=== PATIENT | male | born 1970 | race Caucasian/White ===

== ENCOUNTER 2018-07-23 17:04 | Emergency (ER) | payer SELFPAY ==
--- NOTE | 2018-07-23 18:42 | ED ---
Respiratory - HPI Summary HPI Summary: This pt is a 48 y/o male presenting to [facility] [place] c/o cough and SOB for the past couple of days. Pt reports he had flu like symptoms over the weekend, that have since resolved. Since a couple of days ago pt has had persistent nonproductive cough and SOB. Pt notes he had fever and wheezing last night. Additionally states he has been feeling chest heaviness with cough, nasal congestion and body aches. - History of Current Complaint Chief Complaint: EDFluSymptoms Stated Complaint: COUGH/FEVER Time Seen by Provider: 07/23/18 18:31 Hx Obtained From: Patient Onset/Duration: Lasting Days, Still Present Current Severity: Moderate Pain Intensity: 0 Character: Wheezing, Cough (Nonproductive) Sputum Amount: None Aggravating Factor(s): Nothing Alleviating Factor(s): Nothing Associated Signs and Symptoms: SOB, Chest Pain, Wheezing, Chest Pain with Cough , Nasal Congestion - Allergy/Home Medications Allergies/Adverse Reactions: Allergies Allergy/AdvReac Type Severity Reaction Status Date / Time No Known Allergies Allergy Verified 12/24/14 18:26 PMH/Surg Hx/FS Hx/Imm Hx Endocrine/Hematology History: Reports: Hx Diabetes Denies: Hx Thyroid Disease Cardiovascular History: Denies: Hx Congestive Heart Failure, Hx Hypertension Respiratory History: Denies: Hx Asthma, Hx Chronic Obstructive Pulmonary Disease (COPD) GI History: Denies: Hx Ulcer - Surgical History Surgery Procedure, Year, and Place: left ankle/foot surgery Infectious Disease History: No Infectious Disease History: Denies: Hx Hepatitis, Hx Human Immunodeficiency Virus (HIV), Traveled Outside the [place] in Last 30 Days - Family History Family History: CVA - Social History Alcohol Use: None Substance Use Type: Reports: None Smoking Status (MU): Former Smoker Review of Systems Positive: Fever ENT: Other - POS: nasal congestion Positive: Chest Pain Positive: Shortness Of Breath, Cough Positive: Myalgia All Other Systems Reviewed And Are Negative: Yes Physical Exam - Summary Physical Exam Summary: VITAL SIGNS: Reviewed. GENERAL: Patient is a well-developed and nourished male who is lying comfortable in the stretcher. Patient is not in any acute respiratory distress. HEAD AND FACE: No signs of trauma. No ecchymosis, hematomas or skull depressions. No sinus tenderness. EYES: PERRLA, EOMI x 2, No injected conjunctiva, no nystagmus. EARS: Hearing grossly intact. Ear canals and tympanic membranes are within normal limits. MOUTH: Oropharynx within normal limits. NECK: Supple, trachea is midline, no adenopathy, no JVD, no carotid bruit, no c- spine tenderness, neck with full ROM. CHEST: Symmetric, no tenderness at palpation LUNGS: Crackles, wheezing and decreased breath sounds. CVS: Regular rate and rhythm, S1 and S2 present, no murmurs or gallops appreciated. ABDOMEN: Soft, non-tender. No signs of distention. No rebound, no guarding, and no masses palpated. Bowel sounds are normal. EXTREMITIES: FROM in all major joints, no edema, no cyanosis or clubbing. NEURO: Alert and oriented x 3. No acute neurological deficits. Speech is normal and follows commands. SKIN: Dry and warm Triage Information Reviewed: Yes Vital Signs On Initial Exam: Initial Vitals Temp Pulse Resp BP Pulse Ox 96.8 F 104 20 161/94 97 07/23/18 17:09 07/23/18 17:09 07/23/18 17:09 07/23/18 17:09 07/23/18 17:09 Vital Signs Reviewed: Yes Diagnostics - Vital Signs Vital Signs Temp Pulse Resp BP Pulse Ox 07/23/18 17:09 96.8 F 104 20 161/94 97 - Laboratory Lab Statement: Any lab studies that have been ordered have been reviewed, and results considered in the medical decision making process. - Radiology Chest XR Radiology Interpretation Completed By: ED Physician Summary of Radiographic Findings: Negative chest XR. Pending official report. - EKG 18:57 Cardiac Rate: NL - at 99 bpm EKG Rhythm: Sinus Rhythm EKG Comparison: Other - No old EKG for comparison Summary of EKG Findings: No ST elevations. T wave inversion in leads III and aVF. Disposition - Course Assessment/Plan: Influenza A is positive. Chest x-ray is negative. In the ED course the patient was given a DuoNeb since the patient had some wheezing. The after these medications were given the symptoms have improved. The patient was discharged home with a prescription for Tamiflu. Patient was instructed to return to the emergency department if the symptoms worsen. He understands and agrees. - Differential Dx - Cardiopulmonary Differential Diagnoses - Cardiopulmonary: Bronchitis, Influenza - Diagnoses Provider Diagnoses: Influenza A Discharge - Sign-Out/Discharge Documenting (check all that apply): Patient Departure - Discharge home Patient Received Moderate/Deep Sedation with Procedure: No - Discharge Plan Condition: Stable Disposition: HOME Prescriptions: Oseltamivir CAP* [Tamiflu CAP*] 75 mg PO BID #10 cap Patient Education Materials: Influenza (ED) Referrals: Darrick Abad [Primary Care Provider] - Additional Instructions: FOLLOW UP WITH YOUR PRIMARY CARE PROVIDER WITHIN ONE WEEK FOR HIGH BLOOD PRESSURE NOTED TODAY. RETURN TO THE ED FOR ANY NEW OR WORSENING SYMPTOMS. - Billing Disposition and Condition Condition: STABLE Disposition: Home - Attestation Statements Document Initiated by Scribe: Yes Documenting Scribe: Jenny King Provider For Whom Scribe is Documenting (Include Credential): Jimmie Pascual MD Scribe Attestation: Jenny Nguyen scribed for Jimmie Pascual MD on 07/25/18 at 2044. Scribe Documentation Reviewed: Yes Provider Attestation: The documentation as recorded by the Jenny solano accurately reflects the service I personally performed and the decisions made by Jimmie patrick MD Status of Scribe Document: Viewed
[2018-07-23] MEDS ORDERED: methylPREDNISolone 125 MG* 2 ML VIAL IV ONE (18:44)
[2018-07-23] MEDS ORDERED: NS 0.9% 1000 ML** 1,000 ML IV ONE (18:44)
[2018-07-23] MEDS ORDERED: Albuterol/Ipratropium NEB.SOL* Albuterol 2.5 MG/Ipratropium 0.5 MG 3 ML INH ONE (18:44)
[2018-07-23 18:50] LABS: Influenza A Molecular POSITIVE (Negative)
[2018-07-23 20:16] VITALS: BP 129/65
== END 2018-07-23 20:15 | disposition home or self-care (01) ==
LOC: ED 17:04
DX: J10.1 Influenza due to other identified influenza virus with other respiratory manifestations (principal); Z87.891 Personal history of nicotine dependence; E11.9 Type 2 diabetes mellitus without complications
CPT/HCPCS: 71045; 93005; 99282; A9270-GY; J2930

== ENCOUNTER 2019-05-14 21:19 | Emergency (ER) | payer OTHER ==
[2019-05-14] MEDS ORDERED: Ondansetron ODT TAB* 4 MG PO ONE (21:42)
[2019-05-14] MEDS ORDERED: Pantoprazole IV* 40 MG IV ONE (21:42)
[2019-05-14] MEDS ORDERED: NS 0.9% 1000 ML** 1,000 ML IV ONE ×2 (21:43→22:25)
[2019-05-14 22:00] LABS: ABS Eosinophils 0.1 10^3/ul (0-0.6); ABS Lymphocytes 1.7 10^3/ul (1.0-4.8); ABS Monocytes 0.8 10^3/ul (0-0.8); ABS Neutrophils 13.1 10^3/ul (1.5-7.7); Eosinophil % 0.5 %; Hematocrit 50 % (42-52); Hemoglobin 17.4 g/dL (14.0-18.0); Lymphocyte % 10.7 %; Mean Corpuscular HGB Conc 35 g/dL (31-36); Mean Corpuscular Hemoglobin 31 pg (27-31); Mean Corpuscular Volume 89 fL (80-94); Mean Platelet Volume 7.5 fL (7.4-10.4); Platelet Count 310 10^3/uL (150-450); Red Blood Count 5.58 10^6 /uL (4.18-5.48); Red Cell Distribution Width 13 % (10-15); White Blood Count 15.8 10^3/uL (3.5-10.8)
[2019-05-14] MEDS ORDERED: Ketorolac INJ* 30 MG/ML 1 ML VIAL IV PUSH ONE (22:05)
--- NOTE | 2019-05-14 22:05 | ED ---
GI/ HPI - HPI Summary HPI Summary: 49-year-old male presents with abd pain for the past couple hours. He states that pain has been changing in severity in his upper abd. has has had n/v. Pain doesn't change the nausea. Did have episode of diarrhea. Has pain in epigastric. denies any chest pain or shortness of breath. he has never had this pain before. Does have a previous hernia surgery. No urinary symptoms. Has a history of diabetes that is not taking any medications for. - History of Current Complaint Chief Complaint: EDAbdPain Time Seen by Provider: 05/14/19 21:35 Stated Complaint: VOMITING , ABD PAIN Pain Intensity: 10 - Allergy/Home Medications Allergies/Adverse Reactions: Allergies Allergy/AdvReac Type Severity Reaction Status Date / Time No Known Allergies Allergy Verified 12/24/14 18:26 PMH/Surg Hx/FS Hx/Imm Hx Endocrine/Hematology History: Reports: Hx Diabetes Denies: Hx Thyroid Disease Cardiovascular History: Denies: Hx Congestive Heart Failure, Hx Hypertension Respiratory History: Denies: Hx Asthma, Hx Chronic Obstructive Pulmonary Disease (COPD) GI History: Denies: Hx Ulcer - Surgical History Surgery Procedure, Year, and Place: left ankle/foot surgery Infectious Disease History: No Infectious Disease History: Denies: Hx Hepatitis, Hx Human Immunodeficiency Virus (HIV), Traveled Outside the [place] in Last 30 Days - Family History Known Family History: Positive: Non-Contributory Family History: CVA - Social History Alcohol Use: None Substance Use Type: Reports: None Smoking Status (MU): Former Smoker Review of Systems Negative: Fever Negative: Chest Pain Negative: Shortness Of Breath Positive: Abdominal Pain, Vomiting, Diarrhea, Nausea All Other Systems Reviewed And Are Negative: Yes Physical Exam Triage Information Reviewed: Yes Vital Signs On Initial Exam: Initial Vitals Temp Pulse Resp BP Pulse Ox 98.0 F 91 20 193/105 98 05/14/19 21:20 05/14/19 21:20 05/14/19 21:20 05/14/19 21:20 05/14/19 21:20 Vital Signs Reviewed: Yes Appearance: Positive: Well-Appearing Skin: Positive: Warm, Dry Head/Face: Positive: Normal Head/Face Inspection Eyes: Positive: Normal, Conjunctiva Clear ENT: Positive: Pharynx normal Respiratory/Lung Sounds: Positive: Clear to Auscultation, Breath Sounds Present Cardiovascular: Positive: Normal, RRR Abdomen Description: Positive: Nontender, Soft Bowel Sounds: Positive: Present Musculoskeletal: Positive: Normal Neurological: Positive: Normal Psychiatric: Positive: Normal Procedures - Sedation Patient Received Moderate/Deep Sedation with Procedure: No Diagnostics - Vital Signs Vital Signs Temp Pulse Resp BP Pulse Ox 05/14/19 21:20 98.0 F 91 20 193/105 98 - Laboratory Lab Results: Lab Results 05/14/19 Range/Units 21:50 WBC 15.8 H (3.5-10.8) 10^3/uL RBC 5.58 H (4.18-5.48) 10^6 /uL Hgb 17.4 (14.0-18.0) g/dL Hct 50 (42-52) % MCV 89 (80-94) fL MCH 31 (27-31) pg MCHC 35 (31-36) g/dL RDW 13 (10-15) % Plt Count 310 (150-450) 10^3/uL MPV 7.5 (7.4-10.4) fL Neut % (Auto) 83.3 % Lymph % (Auto) 10.7 % [place] % (Auto) 5.2 % Eos % (Auto) 0.5 % Baso % (Auto) 0.3 % Absolute Neuts (auto) 13.1 H (1.5-7.7) 10^3/ul Absolute Lymphs (auto) 1.7 (1.0-4.8) 10^3/ul Absolute Monos (auto) 0.8 (0-0.8) 10^3/ul Absolute Eos (auto) 0.1 (0-0.6) 10^3/ul Absolute Basos (auto) 0.0 (0-0.2) 10^3/ul Absolute Nucleated RBC 0.0 10^3/ul Nucleated RBC % 0.0 Result Diagrams: 05/14/19 21:50 05/15/19 00:07 Lab Statement: Any lab studies that have been ordered have been reviewed, and results considered in the medical decision making process. - CT abd CT Interpretation Completed By: Radiologist Summary of CT Findings: IMPRESSION: 1. Early versus partial small bowel obstruction. 2. Colonic diverticulosis. - EKG No standard instances Cardiac Rate: NL EKG Rhythm: Sinus Rhythm EKG Comparison: No Significant Change Summary of EKG Findings: sinus rhythm Re-Evaluation - Re-Evaluation First Eval Re-Evaluation Time: 22:05 Change: Worse - tenderness periumbilical Comment: pain is getting worst Second Eval Re-Evaluation Time: 01:05 Change: Improved Comment: feeling better. states has been passing gas, bowel sounds noted GIGU Course/Dx - Course Course Of Treatment: 49-year-old male presents with abd pain for the past couple hours. He states that pain has been changing in severity in his upper abd. has has had n/v. Pain doesn't change the nausea. Did have episode of diarrhea. Has pain in epigastric. denies any chest pain or shortness of breath. he has never had this pain before. Does have a previous hernia surgery. No urinary symptoms. Has a history of diabetes that is not taking any medications for. On exam initially was nontender but on repeat exam has mild tenderness in the epigastric region. wbc 15.8. crp normal. glucose is 400 so will give fluids and insulin. Ct abd shows partial sbo vs early sbo. patient states is passing gas and is currently comfortable so will discharge. told to follow bowel rest until symptoms improve. gave pain meds and nausea meds. told if stop passing gas, develop persistent vomiting, worsening abd pain to return. told to restart dm meds. told follow up with primary about dm. patient understand and agrees with plan. - Diagnoses Differential Diagnoses - Male: Appendicitis, Gall Bladder Disease, Gastroenteritis (Viral) Provider Diagnoses: Partial small bowel obstruction, Hyperglycemia Discharge ED - Sign-Out/Discharge Documenting (check all that apply): Patient Departure - Discharge Plan Condition: Good Disposition: HOME Prescriptions: HYDROcodone/ACETAMIN 5-325 MG* [[place] 5-325 TAB*] 1 - 2 tab PO Q6H PRN #12 tab MDD 8 PRN Reason: Pain - Moderate Ondansetron ODT TAB* [Zofran 4 MG Odt TAB*] 4 mg PO Q6H PRN #16 tab.odt PRN Reason: Nausea Referrals: Darrick Abad [Primary Care Provider] - Additional Instructions: bowel rest: only small amount of fluid as tolerated until symptom improve take zofran every 6 hours as needed for nausea take norco every 6 hours as needed for pain follow up with primary within 5 days Return to ED if develop persistent vomiting, worsening abd pain, or any new or worsening symptoms - Billing Disposition and Condition Condition: GOOD Disposition: Home
[2019-05-14 22:17] LABS: ALT 23 U/L (7-52); Albumin 4.4 g/dL (3.2-5.2); Albumin/Globulin Ratio 1.4 (1-3); Alkaline Phosphatase 70 U/L (34-104); Amylase 20 U/L (29-103); BUN/Creatinine Ratio 22.9 (8-20); Blood Urea Nitrogen 19 mg/dL (6-24); C Reactive Protein 6.47 mg/L (<8.01); CO2 Carbon Dioxide 24 mmol/L (22-32); Calcium 9.7 mg/dL (8.6-10.3); Chloride 98 mmol/L (101-111); EGFR African American 119.2 (>60); EGFR Non-African American 98.5 (>60); Globulin 3.1 g/dL (2-4); Glucose 400 mg/dL (70-100); Sodium 134 mmol/L (135-145); Total Protein 7.5 g/dL (6.4-8.9)
[2019-05-14 22:19] LABS: Troponin I 0.01 ng/mL (<0.03)
[2019-05-14] MEDS ORDERED: Insulin REGULAR(*) 1 UNITS UNIT SUBCUT ONE (22:24)
[2019-05-14 22:26] LABS: Anion Gap 12 mmol/L (2-11)
[2019-05-14] MEDS ORDERED: Iodixanol* (CONTRAST) 320 MG/ML 100 ML SDV IV ONE (22:26)
[2019-05-14 23:03] LABS: Urine Appearance Clear; Urine Bilirubin Negative (Negative); Urine Blood 1+ (Negative); Urine Color Straw; Urine Glucose 3+(>=500 mg/dL) (Negative); Urine Ketones 2+ (Negative); Urine Nitrite Negative (Negative); Urine Protein Negative (Negative); Urine Specific Gravity 1.033 (1.010-1.030); Urine Urobilinogen Negative (Negative)
[2019-05-14 23:04] LABS: Urine Bacteria Absent (Absent); Urine Red Blood Cell Trace(0-2/hpf) (Absent); Urine White Blood Cell Absent (Absent)
[2019-05-15 00:55] LABS: Potassium Redraw 4.5 mmol/L (3.5-5.0)
[2019-05-15] MEDS ORDERED: oxyCODONE/Acetamin 5/325 MG* TAB PO ONE (01:07)
[2019-05-15 01:23] VITALS: BP 159/76
[2019-05-15] MEDS ORDERED: O ndansetron ODT 4MG 5TAB PRPK 4 MG PAK PO ONE (02:03)
== END 2019-05-15 02:08 | disposition home or self-care (01) ==
LOC: ED 21:19
DX: K56.600 Partial intestinal obstruction, unspecified as to cause (principal); E11.65 Type 2 diabetes mellitus with hyperglycemia; Z87.891 Personal history of nicotine dependence
CPT/HCPCS: 36415; 74177; 80053; 81003; 81015; 82150; 83605; 83690; 84484; 85025; 86140; 93005; 96361; 96374; 96375; 99283; A9270-GY; J1885; Q9967

== ENCOUNTER 2021-03-04 15:01 | Inpatient (IN) ==
[2021-03-04 19:20] LABS: ABS Eosinophils 0.1 10^3/ul (0-0.6); ABS Lymphocytes 1.3 10^3/ul (1.0-4.8); ABS Monocytes 0.7 10^3/ul (0-0.8); ABS Neutrophils 5.2 10^3/ul (1.5-7.7); Eosinophil % 1.1 %; Hematocrit 49 % (42-52); Hemoglobin 16.1 g/dL (14.0-18.0); Lymphocyte % 17.5 %; Mean Corpuscular HGB Conc 33 g/dL (31-36); Mean Corpuscular Hemoglobin 31 pg (27-31); Mean Corpuscular Volume 93 fL (80-94); Mean Platelet Volume 7.8 fL (7.4-10.4); Platelet Count 257 10^3/uL (150-450); Red Blood Count 5.27 10^6 /uL (4.18-5.48); Red Cell Distribution Width 14 % (10-15); White Blood Count 7.2 10^3/uL (3.5-10.8)
[2021-03-04 19:37] LABS: ALT 30 U/L (7-52); AST 34 U/L (13-39); Albumin 4.2 g/dL (3.2-5.2); Albumin/Globulin Ratio 1.3 (1-3); Alkaline Phosphatase 280 U/L (35-149); Anion Gap 10 mmol/L (2-11); Blood Urea Nitrogen 18 mg/dL (6-24); C Reactive Protein 13.01 mg/L (<8.01); CO2 Carbon Dioxide 24 mmol/L (22-32); Calcium 9.1 mg/dL (8.6-10.3); Chloride 99 mmol/L (101-111); EGFR African American 102.8 (>60); EGFR Non-African American 84.9 (>60); Globulin 3.3 g/dL (2-4); Glucose 385 mg/dL (70-100); Potassium 4.4 mmol/L (3.5-5.0); Sodium 133 mmol/L (135-145); Total Protein 7.5 g/dL (6.4-8.9)
[2021-03-04 19:41] LABS: INR 1.06 (0.86-1.15)
[2021-03-04] MEDS ORDERED: Iodixanol (CONTRAST) 320 MG/ML 100 ML SDV IV ONE (20:34)
[2021-03-04 23:06] LABS: Troponin I 0.04 ng/mL (<0.03)
[2021-03-04 23:56] LABS: Cholesterol 173 mg/dL; HDL Cholesterol 60.3 mg/dL; LDL Cholesterol 95 mg/dL; Triglycerides 91 mg/dL
[2021-03-05] MEDS ORDERED: Furosemide 20 mg/2 ml IV VIAL IV ONE (00:11)
[2021-03-05] MEDS ORDERED: Dextrose 50% Syringe 50 ml 25 GM/50 ML SYRINGE IV PUSH PRN (00:26)
[2021-03-05 01:15] LABS: Magnesium 1.9 mg/dL (1.9-2.7)
[2021-03-05 01:36] LABS: TSH Ultra Thyroid Stim Horm 1.59 mcIU/mL (0.34-5.60)
[2021-03-05 02:24] LABS: Magnesium 1.8 mg/dL (1.9-2.7)
[2021-03-05 02:30] LABS: Troponin I 0.04 ng/mL (<0.03)
[2021-03-05 02:32] LABS: Rapid COVID-19 Molecular Undetected (Undetected)
[2021-03-05 03:37] LABS: Hepatitis C Antibody Negative (Negative)
[2021-03-05 07:23] LABS: Anion Gap 10 mmol/L (2-11); Blood Urea Nitrogen 17 mg/dL (6-24); CO2 Carbon Dioxide 24 mmol/L (22-32); Calcium 8.5 mg/dL (8.6-10.3); Chloride 101 mmol/L (101-111); EGFR African American 115.4 (>60); EGFR Non-African American 95.4 (>60); Glucose 367 mg/dL (70-100); Potassium 4.2 mmol/L (3.5-5.0); Sodium 135 mmol/L (135-145)
[2021-03-05] MEDS ORDERED: Furosemide 40 mg/4 ml IV VIAL IV ONE ×2 (08:00→14:54)
[2021-03-05] MEDS: Enoxaparin 40 MG/0.4 ML SYR SUBCUT SCH (08:29)
[2021-03-05] MEDS ORDERED: Magnesium Sulfate 2 gm BAG 2 GM/50 ML BAG IVPB ONE (09:03)
[2021-03-05 09:53] LABS: UR Microalbumin (mg/L) 39.7 mg/L; Urine Creatinine 41.14 mg/dL; Urine Microalbumin/Creatinine 96.4 (<31)
[2021-03-05 18:17] LABS: Urine Appearance Clear; Urine Bilirubin Negative (Negative); Urine Blood 1+ (Negative); Urine Color Yellow; Urine Glucose 3+(>=500 mg/dL) (Negative); Urine Ketones Negative (Negative); Urine Nitrite Negative (Negative); Urine Protein 1+(30 mg/dL) (Negative); Urine Urobilinogen Negative (Negative)
[2021-03-05 18:32] LABS: Urine Bacteria Absent (Absent); Urine Red Blood Cell Trace(0-2/hpf) (Absent); Urine White Blood Cell Trace(0-5/hpf) (Absent)
[2021-03-06 06:25] LABS: Calcium 9.1 mg/dL (8.6-10.3); EGFR African American 127.5 (>60); EGFR Non-African American 105.4 (>60); Potassium 3.9 mmol/L (3.5-5.0)
[2021-03-06] MEDS ORDERED: Furosemide 40 mg/4 ml IV VIAL IV SLOW PU ONE (08:36)
[2021-03-06 09:52] LABS: Magnesium 1.9 mg/dL (1.9-2.7)
[2021-03-06] MEDS: Enoxaparin 40 MG/0.4 ML SYR SUBCUT SCH (09:55)
[2021-03-06] MEDS: Insulin GLARGINE 100 un/ml 10 ml VIAL SUBCUT SCH (20:26)
[2021-03-07 06:56] LABS: ABS Basophils 0.1 10^3/ul (0-0.2); ABS Eosinophils 0.1 10^3/ul (0-0.6); ABS Lymphocytes 1.3 10^3/ul (1.0-4.8); ABS Monocytes 0.7 10^3/ul (0-0.8); ABS Neutrophils 4.1 10^3/ul (1.5-7.7); Hematocrit 43 % (42-52); Hemoglobin 14.6 g/dL (14.0-18.0); Lymphocyte % 20.9 %; Mean Corpuscular HGB Conc 34 g/dL (31-36); Mean Corpuscular Hemoglobin 31 pg (27-31); Mean Corpuscular Volume 91 fL (80-94); Mean Platelet Volume 7.8 fL (7.4-10.4); Nucleated Red Blood Cells % 0.1; Platelet Count 243 10^3/uL (150-450); Red Blood Count 4.75 10^6 /uL (4.18-5.48); Red Cell Distribution Width 14 % (10-15); White Blood Count 6.3 10^3/uL (3.5-10.8)
[2021-03-07 07:13] LABS: Anion Gap 8 mmol/L (2-11); Blood Urea Nitrogen 19 mg/dL (6-24); CO2 Carbon Dioxide 27 mmol/L (22-32); Calcium 8.6 mg/dL (8.6-10.3); Chloride 101 mmol/L (101-111); EGFR African American 146.9 (>60); EGFR Non-African American 121.4 (>60); Glucose 237 mg/dL (70-100); Magnesium 1.8 mg/dL (1.9-2.7); Potassium 3.8 mmol/L (3.5-5.0); Sodium 136 mmol/L (135-145)
[2021-03-07] MEDS: Enoxaparin 40 MG/0.4 ML SYR SUBCUT SCH (07:30)
[2021-03-07] MEDS ORDERED: diPHENhydraMINE 25 mg TAB PO PRN (09:00)
[2021-03-07] MEDS ORDERED: Heparin 1,000 UNIT/ML 10 ml (10,000 UNITS) CATHLAB/DIALYSIS ONE (09:46)
[2021-03-07] MEDS ORDERED: fentaNYL 100 mcg/2 ml 50 MCG/ML VIAL ONE (09:46)
[2021-03-07] MEDS ORDERED: VERAPAMIL 2.5 MG/ML 2 ML VIAL ** 5 mg/2 ml ONE (09:46)
[2021-03-07] MEDS ORDERED: Midazolam 5 mg/5 ml VIAL 1 mg/ml 5 ml VIAL (5 mg) ONE (09:46)
[2021-03-07] MEDS ORDERED: Lidocaine 1% VIAL 10 MG/ML VIAL ONE (09:47)
[2021-03-07] MEDS ORDERED: Iohexol 350 (CONTRAST) 200 ML MDV IV ONE (09:47)
[2021-03-07] MEDS ORDERED: Heparin 2 UNITS/ML 1000 mls 2,000 ML IV ONE (09:47)
[2021-03-07] MEDS ORDERED: nitroGLYCERIN DRIP 25,000 MCG/250 ML BTL ONE (09:47)
[2021-03-07] MEDS ORDERED: NS 0.9% 1000 ml BAG 1,000 ML IV SCH (10:30)
[2021-03-07 15:34] LABS: HIV 4th Generation Nonreactive (Nonreactive)
[2021-03-07] MEDS: Insulin GLARGINE 100 un/ml 10 ml VIAL SUBCUT SCH (21:56)
[2021-03-08] MEDS ORDERED: Ondansetron 4 mg VIAL 2 MG/ML 2 ml VIAL IV PRN (03:15)
[2021-03-08] MEDS ORDERED: Metoclopramide 5 MG/ML VIAL (10 mg) IV SLOW PU ONE (03:20)
[2021-03-08 05:55] LABS: ABS Basophils 0.1 10^3/ul (0-0.2); ABS Eosinophils 0.1 10^3/ul (0-0.6); ABS Lymphocytes 1.3 10^3/ul (1.0-4.8); ABS Monocytes 1.2 10^3/ul (0-0.8); ABS Neutrophils 7.6 10^3/ul (1.5-7.7); Eosinophil % 1.2 %; Hematocrit 46 % (42-52); Hemoglobin 15.6 g/dL (14.0-18.0); Lymphocyte % 12.4 %; Mean Corpuscular HGB Conc 34 g/dL (31-36); Mean Corpuscular Hemoglobin 31 pg (27-31); Mean Corpuscular Volume 91 fL (80-94); Mean Platelet Volume 8.2 fL (7.4-10.4); Platelet Count 243 10^3/uL (150-450); Red Blood Count 5.04 10^6 /uL (4.18-5.48); Red Cell Distribution Width 14 % (10-15); White Blood Count 10.2 10^3/uL (3.5-10.8)
[2021-03-08 05:58] LABS: EGFR African American 120.3 (>60); EGFR Non-African American 99.5 (>60); Magnesium 1.9 mg/dL (1.9-2.7); Potassium 3.9 mmol/L (3.5-5.0)
[2021-03-08] MEDS: Enoxaparin 40 MG/0.4 ML SYR SUBCUT SCH (09:03)
[2021-03-08 15:20] VITALS: BP 139/88
[2021-03-09 03:37] LABS: Anaplasma phagocytophilum Negative (Negative); B. miyamotoi PCR, B Negative (Negative); Babesia divergens/MO-1 Negative (Negative); Babesia ducani Negative (Negative); Ehrlichia chaffeensis Negative (Negative); Ehrlichia ewingii/canis Negative (Negative); Ehrlichia muris eauclairensis Negative (Negative)
== END 2021-03-08 16:38 | disposition home or self-care (01) | DRG 192 ==
LOC: ED 15:01 → SSU 15:01 → SUATTDRO 03-05 00:01 → SSU 03-05 05:03 → SUATTDRO 03-06 12:26 → MEDTELE 03-06 15:38
PROVIDERS: ADMIT Internal Medicine; ATTEND Internal Medicine

== ENCOUNTER 2024-01-21 15:35 | Inpatient (IN) ==
[2024-01-21 16:16] LABS: ABS Basophils 0.1 10^3/uL (0.0-0.1); ABS Eosinophils 0.1 10^3/uL (0.0-0.5); ABS Lymphocytes 2.4 10^3/uL (1.0-4.8); ABS Monocytes 0.9 10^3/uL (0.0-1.1); ABS Neutrophils 8.5 10^3/uL (1.5-7.6); ABS Nucleated RBC 0.01 10^3/ul; Eosinophil % 0.5 %; Hematocrit 45.1 % (38-53); Hemoglobin 15.6 g/dL (13.2-16.3); Lymphocyte % 19.8 %; Mean Corpuscular Hemoglobin 31.6 pg (27-33); Mean Corpuscular Hgb Conc 34.4 g/dL (31-36); Mean Corpuscular Volume 91.6 fL (80-97); Mean Platelet Volume 7.1 fL (7.5-11.2); Nucleated Red Blood Cells % 0.1 %/100WBC (0.0-0.8); Platelet Count 255 10^3/uL (150-450); Red Blood Count 4.93 10^6/uL (4.06-5.63); Red Cell Distribution Width 13.5 % (12-17); White Blood Count 11.9 10^3/uL (3.6-10.2)
[2024-01-21 16:24] LABS: INR 0.9 (0.83-1.13)
[2024-01-21 17:07] LABS: Albumin 4.3 g/dL (3.2-5.2); Albumin/Globulin Ratio 1.7 (1-3); Calcium 9.5 mg/dL (8.6-10.3); Creatinine, Serum 0.57 mg/dL (0.67-1.17); Globulin 2.6 g/dL (2-4); Potassium 4.3 mmol/L (3.5-5.0); Total Bilirubin 0.4 mg/dL (0.2-1.0); Total Protein 6.9 g/dL (6.4-8.9); eGFR CKD-EPI 117.2 (>60)
[2024-01-21 17:53] LABS: High Sensitivity Troponin 1 Hr 1110 pg/mL (<20)
[2024-01-21] MEDS: Heparin 5000 UNITS/ML 1 mL VIAL IV SCH (17:59)
[2024-01-21] MEDS: Heparin DRIP 25,000 UNITS BAG 25,000 UNITS/250 ML BAG IV SCH (17:59)
[2024-01-21 18:08] LABS: ABS Basophils 0.1 10^3/uL (0.0-0.1); ABS Eosinophils 0.1 10^3/uL (0.0-0.5); ABS Lymphocytes 2.5 10^3/uL (1.0-4.8); ABS Monocytes 1.1 10^3/uL (0.0-1.1); ABS Neutrophils 8.1 10^3/uL (1.5-7.6); Eosinophil % 0.5 %; Hematocrit 43.5 % (38-53); Hemoglobin 14.5 g/dL (13.2-16.3); Lymphocyte % 20.9 %; Mean Corpuscular Hemoglobin 30.7 pg (27-33); Mean Corpuscular Hgb Conc 33.4 g/dL (31-36); Mean Corpuscular Volume 91.8 fL (80-97); Mean Platelet Volume 7.4 fL (7.5-11.2); Platelet Count 260 10^3/uL (150-450); Red Blood Count 4.74 10^6/uL (4.06-5.63); Red Cell Distribution Width 13.5 % (12-17); White Blood Count 11.9 10^3/uL (3.6-10.2)
[2024-01-21 18:36] LABS: Creatinine, Serum 0.5 mg/dL (0.67-1.17)
[2024-01-21] MEDS ORDERED: Dextrose 50% Syringe 50 ml 25 GM/50 ML SYRINGE IV PUSH PRN (20:47)
[2024-01-21 22:37] LABS: High Sensitivity Troponin 3 Hr 1651 pg/mL (<20)
[2024-01-22] MEDS: Latanoprost 0.005% 2.5 ml BTL LEFT EYE SCH (00:04)
[2024-01-22] MEDS: Morphine 2 MG/ML SYRINGE IV ONE (00:07)
[2024-01-22 04:20] LABS: ABS Eosinophils 0.1 10^3/uL (0.0-0.5); ABS Lymphocytes 2.9 10^3/uL (1.0-4.8); ABS Monocytes 0.8 10^3/uL (0.0-1.1); ABS Nucleated RBC 0.01 10^3/ul; Eosinophil % 1.4 %; Hematocrit 44.1 % (38-53); Hemoglobin 15.3 g/dL (13.2-16.3); Lymphocyte % 32.2 %; Mean Corpuscular Hemoglobin 31.8 pg (27-33); Mean Corpuscular Hgb Conc 34.8 g/dL (31-36); Mean Corpuscular Volume 91.6 fL (80-97); Mean Platelet Volume 7.1 fL (7.5-11.2); Nucleated Red Blood Cells % 0.1 %/100WBC (0.0-0.8); Platelet Count 239 10^3/uL (150-450); Red Blood Count 4.82 10^6/uL (4.06-5.63); Red Cell Distribution Width 13.3 % (12-17); White Blood Count 8.9 10^3/uL (3.6-10.2)
[2024-01-22 04:59] LABS: Calcium 8.5 mg/dL (8.6-10.3); Creatinine, Serum 0.54 mg/dL (0.67-1.17); Potassium 3.8 mmol/L (3.5-5.0); eGFR CKD-EPI 119.2 (>60)
[2024-01-22 05:44] LABS: High Sensitivity Troponin 1 Hr 1328 pg/mL (<20)
[2024-01-22 07:55] LABS: Magnesium 1.8 mg/dL (1.9-2.7)
[2024-01-22 08:20] LABS: TSH Ultra Thyroid Stim Horm 1.07 mcIU/mL (0.34-5.60)
[2024-01-22 08:26] LABS: Ferritin 242.7 ng/mL (24-336)
[2024-01-22 08:42] LABS: HDL Cholesterol 50.2 mg/dL
[2024-01-22] MEDS ORDERED: Magnesium Sulfate 2 gm BAG 2 GM/50 ML BAG ONE (10:41)
[2024-01-22] MEDS: Magnesium Sulfate 2 gm BAG 2 GM/50 ML BAG IVPB ONE (10:47)
[2024-01-22] MEDS ORDERED: Flumazenil 0.5 mg/5 ml 0.1 MG/ML 5 ml VIAL IV PRN (11:00)
[2024-01-22] MEDS ORDERED: Naloxone 0.4 mg VIAL 0.4 mg/ml 1 ml VIAL IV PUSH PRN (11:00)
[2024-01-22] MEDS: Sulfur Hexaflouride MICROSPHR 25 MG VIAL IV ONE (11:20)
[2024-01-22] MEDS ORDERED: Sulfur Hexaflouride MICROSPHR 25 MG VIAL ONE (11:52)
[2024-01-22] MEDS ORDERED: nitroGLYCERIN DRIP 25,000 MCG/250 ML BTL ONE (12:07)
[2024-01-22] MEDS ORDERED: niCARdipine 0.1MG/ML IVPREMIX 20 MG/200 ML BAG IV ONE (12:07)
[2024-01-22] MEDS ORDERED: Heparin 2 UNITS/ML 1000 mls 3,000 ML IV ONE (12:07)
[2024-01-22] MEDS ORDERED: Iohexol 350 (CONTRAST) 200 ML MDV IV ONE (12:07)
[2024-01-22] MEDS ORDERED: Lidocaine 1% MPF 5 ML VIAL ONE (12:07)
[2024-01-22] MEDS ORDERED: Midazolam 5 mg/5 ml VIAL 1 mg/ml 5 ml VIAL (5 mg) ONE (12:22)
[2024-01-22] MEDS ORDERED: Heparin 1,000 UNIT/ML 10 ml (10,000 UNITS) CATHLAB/DIALYSIS ONE ×2 (12:23→12:46)
[2024-01-22] MEDS ORDERED: fentaNYL 100 mcg/2 ml 50 MCG/ML VIAL ONE (12:23)
[2024-01-22] MEDS ORDERED: Ondansetron 4 mg VIAL 2 MG/ML 2 ml VIAL ONE (13:09)
[2024-01-22] MEDS ORDERED: Atropine 0.1 MG/ML 10 ml SYR (1 mg) ONE (13:27)
[2024-01-22] MEDS ORDERED: Iohexol 350 (CONTRAST) 100 ML PAK IV ONE (13:30)
[2024-01-22] MEDS: fentaNYL 100 mcg/2 ml 50 MCG/ML VIAL IV SLOW PU ONE (14:24)
[2024-01-22] MEDS: Potassium Chlor 20 meq TAB.ER PO ONE (14:24)
[2024-01-22] MEDS: Midazolam 10 mg/10 ml VIAL 1 mg/ml 10 ml VIAL (10 mg) IV SLOW PU ONE (14:25)
[2024-01-23 05:32] LABS: ABS Basophils 0.1 10^3/uL (0.0-0.1); ABS Eosinophils 0.1 10^3/uL (0.0-0.5); ABS Monocytes 0.9 10^3/uL (0.0-1.1); ABS Neutrophils 7.3 10^3/uL (1.5-7.6); ABS Nucleated RBC 0.01 10^3/ul; Eosinophil % 0.6 %; Hematocrit 48.8 % (38-53); Hemoglobin 16.1 g/dL (13.2-16.3); Lymphocyte % 19.7 %; Mean Corpuscular Hemoglobin 30.6 pg (27-33); Mean Corpuscular Hgb Conc 32.9 g/dL (31-36); Mean Corpuscular Volume 93.1 fL (80-97); Mean Platelet Volume 7.9 fL (7.5-11.2); Nucleated Red Blood Cells % 0.1 %/100WBC (0.0-0.8); Platelet Count 250 10^3/uL (150-450); Red Blood Count 5.24 10^6/uL (4.06-5.63); Red Cell Distribution Width 13.6 % (12-17); White Blood Count 10.3 10^3/uL (3.6-10.2)
[2024-01-23 07:14] LABS: Anion Gap 11 mmol/L (2-16); Blood Urea Nitrogen 17 mg/dL (6-24); CO2 Carbon Dioxide 23 mmol/L (22-32); Calcium 8.5 mg/dL (8.6-10.3); Chloride 102 mmol/L (101-111); Creatinine, Serum 0.63 mg/dL (0.67-1.17); Glucose 99 mg/dL (70-100); Sodium 136 mmol/L (135-145); eGFR CKD-EPI 113.7 (>60)
[2024-01-23] MEDS ORDERED: Sulfur Hexaflouride MICROSPHR 25 MG VIAL ONE (09:25)
[2024-01-23] MEDS: Sulfur Hexaflouride MICROSPHR 25 MG VIAL IV ONE (10:33)
[2024-01-23 11:45] LABS: Potassium, Whole Blood 4.4 mmol/L (3.4-4.5)
[2024-01-23] MEDS: Ondansetron 4 mg VIAL 2 MG/ML 2 ml VIAL IV PRN (13:35)
[2024-01-23] MEDS: Prasugrel 10 mg TAB (NF) PO SCH (13:35)
[2024-01-23 15:14] VITALS: BP 97/57
== END 2024-01-23 15:09 | disposition home or self-care (01) | DRG 174 ==
LOC: ED 15:35 → EDHOLD 15:35 → SUATTDRO 18:28 → MEDTELE 23:46 → ICU 01-22 13:48
PROVIDERS: ADMIT Internal Medicine; ATTEND Student in an Organized Health Care Education/Training Program

== ENCOUNTER 2024-01-24 12:35 | Observation (INO) ==
[2024-01-24 14:24] LABS: ABS Basophils 0.1 10^3/uL (0.0-0.1); ABS Lymphocytes 1.3 10^3/uL (1.0-4.8); ABS Monocytes 0.7 10^3/uL (0.0-1.1); ABS Nucleated RBC 0.06 10^3/ul; Eosinophil % 0.1 %; Hematocrit 54.8 % (38-53); Lymphocyte % 8.6 %; Mean Corpuscular Hemoglobin 32.1 pg (27-33); Mean Corpuscular Hgb Conc 34.6 g/dL (31-36); Mean Corpuscular Volume 92.7 fL (80-97); Mean Platelet Volume 7.3 fL (7.5-11.2); Nucleated Red Blood Cells % 0.4 %/100WBC (0.0-0.8); Platelet Count 381 10^3/uL (150-450); Red Blood Count 5.91 10^6/uL (4.06-5.63); Red Cell Distribution Width 13.7 % (12-17)
[2024-01-24] MEDS: Lactated Ringers 1000 ml BAG 1,000 ML IV ONE (15:08)
[2024-01-24] MEDS: Ondansetron 4 mg VIAL 2 MG/ML 2 ml VIAL IV ONE (15:35)
[2024-01-24 15:38] LABS: Albumin 4.5 g/dL (3.2-5.2); Albumin/Globulin Ratio 1.5 (1-3); Calcium 9.7 mg/dL (8.6-10.3); Globulin 3.1 g/dL (2-4); Potassium 4.8 mmol/L (3.5-5.0); Total Bilirubin 0.8 mg/dL (0.2-1.0); Total Protein 7.6 g/dL (6.4-8.9)
[2024-01-24 15:49] LABS: High Sensitivity Troponin 1 Hr 589 pg/mL (<20)
[2024-01-24] MEDS: Heparin 5000 UNITS/ML 1 mL VIAL IV SCH (17:13)
[2024-01-24] MEDS: Heparin DRIP 25,000 UNITS BAG 25,000 UNITS/250 ML BAG IV SCH (17:16)
[2024-01-24 17:35] LABS: ABS Lymphocytes 1.2 10^3/uL (1.0-4.8); ABS Monocytes 0.9 10^3/uL (0.0-1.1); ABS Nucleated RBC 0.01 10^3/ul; Eosinophil % 0.1 %; Hematocrit 50.4 % (38-53); Hemoglobin 16.9 g/dL (13.2-16.3); Lymphocyte % 8.5 %; Mean Corpuscular Hgb Conc 33.6 g/dL (31-36); Mean Corpuscular Volume 92.1 fL (80-97); Mean Platelet Volume 7.3 fL (7.5-11.2); Nucleated Red Blood Cells % 0.1 %/100WBC (0.0-0.8); Platelet Count 356 10^3/uL (150-450); Red Blood Count 5.47 10^6/uL (4.06-5.63); Red Cell Distribution Width 13.6 % (12-17); White Blood Count 14.1 10^3/uL (3.6-10.2)
[2024-01-24] MEDS ORDERED: Heparin 1,000 UNIT/ML 10 ml (10,000 UNITS) CATHLAB/DIALYSIS ONE (18:17)
[2024-01-24] MEDS ORDERED: fentaNYL 100 mcg/2 ml 50 MCG/ML VIAL ONE (18:17)
[2024-01-24] MEDS ORDERED: Heparin 2 UNITS/ML 1000 mls 3,000 ML IV ONE (18:17)
[2024-01-24] MEDS ORDERED: Midazolam 5 mg/5 ml VIAL 1 mg/ml 5 ml VIAL (5 mg) ONE (18:17)
[2024-01-24] MEDS ORDERED: nitroGLYCERIN DRIP 25,000 MCG/250 ML BTL ONE (18:17)
[2024-01-24] MEDS ORDERED: Iohexol 350 (CONTRAST) 200 ML MDV IV ONE (18:18)
[2024-01-24] MEDS ORDERED: Lidocaine 1% MPF 5 ML VIAL ONE (18:18)
[2024-01-24 18:20] LABS: Creatinine, Serum 0.86 mg/dL (0.67-1.17); eGFR CKD-EPI 103.5 (>60)
[2024-01-24] MEDS ORDERED: Phenylephrine 40 mcg/mL 10mL (400mcg) SYRINGE ONE (18:24)
[2024-01-24] MEDS: Metoprolol Tartrate 5 mg VIAL 5 ml VIAL (1 mg/ml) IV ONE (18:29)
[2024-01-24] MEDS ORDERED: Iohexol 350 (CONTRAST) 100 ML PAK IV ONE (18:57)
[2024-01-24] MEDS ORDERED: Polyethylene Glycol 3350 17 GM PACKET PO PRN (20:02)
[2024-01-24] MEDS ORDERED: Ondansetron 4 mg VIAL 2 MG/ML 2 ml VIAL IV PRN (20:02)
[2024-01-24] MEDS ORDERED: Senna TAB 8.6 mg TAB PO PRN (20:02)
[2024-01-24] MEDS ORDERED: Calcium Carb (TUMS) 500 mg CHEW TAB PO PRN (20:06)
[2024-01-25] MEDS: prednisoLONE 1% OPHTH.SUSP 5 ML OPHTH.SUSP RIGHT EYE SCH (01:23)
[2024-01-25] MEDS: Ketorolac 0.5% OPHTH 5 ML BTL RIGHT EYE SCH (01:23)
[2024-01-25] MEDS: DORZOLAMIDE TIMOLOL LEFT EYE SCH (01:28)
[2024-01-25] MEDS: Latanoprost 0.005% 2.5 ml BTL LEFT EYE SCH (01:43)
[2024-01-25 05:22] LABS: ABS Basophils 0.1 10^3/uL (0.0-0.1); ABS Eosinophils 0.1 10^3/uL (0.0-0.5); ABS Monocytes 1.3 10^3/uL (0.0-1.1); ABS Neutrophils 7.8 10^3/uL (1.5-7.6); ABS Nucleated RBC 0.01 10^3/ul; Eosinophil % 0.5 %; Hematocrit 45.9 % (38-53); Hemoglobin 15.5 g/dL (13.2-16.3); Mean Corpuscular Hgb Conc 33.6 g/dL (31-36); Mean Corpuscular Volume 92.3 fL (80-97); Mean Platelet Volume 6.9 fL (7.5-11.2); Nucleated Red Blood Cells % 0.1 %/100WBC (0.0-0.8); Platelet Count 300 10^3/uL (150-450); Red Blood Count 4.98 10^6/uL (4.06-5.63); Red Cell Distribution Width 13.6 % (12-17); White Blood Count 11.2 10^3/uL (3.6-10.2)
[2024-01-25] MEDS: Al Hydrox/Mg Hydrox/Simet LIQ 30 ML UDC PO ONE (05:59)
[2024-01-25 06:19] LABS: Anion Gap 11 mmol/L (2-16); Blood Urea Nitrogen 24 mg/dL (6-24); CO2 Carbon Dioxide 23 mmol/L (22-32); Calcium 8.3 mg/dL (8.6-10.3); Chloride 103 mmol/L (101-111); Creatinine, Serum 0.74 mg/dL (0.67-1.17); Glucose 130 mg/dL (70-100); Magnesium 1.9 mg/dL (1.9-2.7); Sodium 137 mmol/L (135-145); eGFR CKD-EPI 108.3 (>60)
[2024-01-25] MEDS: Iodixanol (CONTRAST) 320 MG/ML 100 ML SDV IV ONE (12:01)
[2024-01-25 16:55] LABS: C Reactive Protein 4.49 mg/L (<8.01)
[2024-01-25 17:25] VITALS: BP 124/74
[2024-01-25] MEDS: Lidocaine PATCH 5% PATCH TRANSDERM ONE (18:13)
[2024-01-25 18:38] LABS: Erythrocyte Sed Rate 4 mm/Hr (0-19)
== END 2024-01-25 18:26 | disposition home or self-care (01) ==
LOC: ED 12:35 → MEDTELE 18:17 → SUATTDRO 18:18 → CHICATH 18:30
PROVIDERS: ADMIT Internal Medicine; ATTEND Family Medicine